=== PATIENT | female | born 1990 | race Hispanic/Latino ===

== ENCOUNTER 2017-05-04 21:21 | Emergency (ER) | payer MEDICAID ==
[2017-05-04 22:52] LABS: EOS # 0.1 K/uL (0.0-0.7); LYMPH # 2.2 K/uL (1.0-4.3); MEAN CORPUSCULAR HEMOGLOBIN 33.7 pg (27.0-31.0); MONO # 0.5 K/uL (0.0-0.8); RBC 4.26 Mil/uL (3.80-5.20); RED CELL DISTRIBUTION WIDTH 13.7 % (11.5-14.5)
[2017-05-04 22:56] LABS: BASO # 0.1 K/uL (0.0-0.2); BASO % 1.4 % (0.0-2.0); EOS % 1.8 % (0.0-4.0); HEMOGLOBIN 14.3 g/dL (11.0-16.0); LYMPH % 31.7 % (20.0-40.0); MEAN CELL VOLUME 101.8 fL (81.0-99.0); MEAN CORPUSCULAR HGB CONC 33.1 g/dL (33.0-37.0); MEAN PLATELET VOLUME 8.5 fL (7.2-11.7); MONO % 7.7 % (0.0-10.0); NEUT # 3.9 K/uL (1.8-7.0); NEUT % 57.4 % (50.0-75.0); WHITE BLOOD COUNT 6.8 K/uL (4.8-10.8)
--- NOTE | 2017-05-04 23:01 | C.PDOC ---
History Of Present Illness 26 year old female brought in by EMS for acute ETOH intoxication. Patient has a Hx of diabetes and is currently on medication for it. Denies any physical complaints. Chief Complaint (Nursing): Substance Abuse History Per: Patient, EMS History/Exam Limitations: no limitations Onset/Duration Of Symptoms: Hrs Current Symptoms Are (Timing): Still Present Suicide/Self Injury Attempted (Context): None Modifying Factor(s): Alcohol Associated Symptoms: denies: Depression, Suicidal Thoughts, Suicidal Plan Involuntary Hold By: None Recent travel outside of the [place]: No Past Medical History Reviewed: Historical Data, Nursing Documentation, Vital Signs Vital Signs: Last Vital Signs Temp 98.0 F 05/05/17 01:58 Pulse 90 05/05/17 01:58 Resp 18 05/05/17 01:58 BP 119/63 05/05/17 01:58 Pulse Ox 96 05/05/17 01:58 - Medical History PMH: Diabetes Surgical History: No Surg Hx Family History: States: Unknown Family Hx - Social History Hx Alcohol Use: Yes Hx Substance Use: No (unknown refuesed to cooperate) - Immunization History Hx Tetanus Toxoid Vaccination: No Hx Influenza Vaccination: No Hx Pneumococcal Vaccination: No Review Of Systems Constitutional: Negative for: Fever, Chills Gastrointestinal: Negative for: Nausea, Vomiting, Diarrhea Physical Exam - Physical Exam Appears: Non-toxic, No Acute Distress, Other (ETOH on breath) Skin: Normal Color, Warm, Dry Head: Atraumatic, Normacephalic Oral Mucosa: Moist Chest: Symmetrical, No Tenderness Cardiovascular: Rhythm Regular, No Murmur Respiratory: Normal Breath Sounds, No Rales, No Rhonchi, No Wheezing Gastrointestinal/Abdominal: Soft, No Tenderness Neurological/Psych: Oriented x3, Normal Speech, Normal Cognition ED Course And Treatment - Laboratory Results Result Diagrams: 05/04/17 22:48 05/04/17 22:48 O2 Sat by Pulse Oximetry: 95 (Room air) Pulse Ox Interpretation: Normal Progress Note: Blood work and urinalysis ordered. Disposition - Disposition Referrals: [facility] [Outside] Disposition: HOME/ ROUTINE Disposition Time: 01:30 Condition: STABLE Instructions: Diabetes Mellitus Type 1 in Adults (ED), Alcohol Intoxication ( GEN) - POA Present On Arrival: None - Clinical Impression Clinical Impression: Alcohol abuse - Scribe Statement The provider has reviewed the documentation as recorded by the Scribe Matt Mchugh All medical record entries made by the Mickieibelena were at my direction and personally dictated by me. I have reviewed the chart and agree that the record accurately reflects my personal performance of the history, physical exam, medical decision making, and the department course for this patient. I have also personally directed, reviewed, and agree with the discharge instructions and disposition.
[2017-05-04 23:03] LABS: ALB/GLOB RATIO 1.3 (1.0-2.1); AST/SGOT 92 U/L (14-36); GFR AFRICAN-AMERICAN > 60; GFR NON-AFRICAN AMERICAN > 60
[2017-05-04 23:04] LABS: ALT/SGPT 45 U/L (9-52); BLOOD UREA NITROGEN 8 mg/dL (7-17); CALCIUM 8.6 mg/dl (8.6-10.4)
[2017-05-04 23:05] LABS: URINE BILIRUBIN NEGATIVE (NEGATIVE); URINE BLOOD NEGATIVE (NEGATIVE); URINE CLARITY Clear (Clear); URINE COLOR Colorless (YELLOW); URINE GLUCOSE (UA) 3+ mg/dL (Normal); URINE LEUKOCYTE ESTERASE NEG Leu/uL (Negative); URINE NITRATE NEGATIVE (NEGATIVE); URINE PROTEIN NEGATIVE (NEGATIVE); URINE UROBILINOGEN NORMAL mg/dL (0.2-1.0)
[2017-05-04 23:13] LABS: HCG,QUALITATIVE URINE NEGATIVE (NEGATIVE)
[2017-05-04 23:18] LABS: BARBITURATES, UR NEGATIVE (NEGATIVE)
[2017-05-04 23:19] LABS: BENZODIAZEPINES, UR NEGATIVE (NEGATIVE)
[2017-05-04] MEDS ORDERED: (Novolin R) Insulin Human Regular 100 units/ml vial SC ONE (23:19)
[2017-05-04 23:21] LABS: OPIATES, UR NEGATIVE (NEGATIVE)
[2017-05-04 23:22] LABS: PHENCYCLIDINE, UR NEGATIVE (NEGATIVE)
[2017-05-04] MEDS ORDERED: (Novolin R) Insulin Human Regular 100 units/ml vial ONE (23:28)
[2017-05-04] MEDS ORDERED: (Novolog) Insulin Aspart, Recombinant 100 u/ml 10 ml vial SC STA (23:35)
[2017-05-04] MEDS ORDERED: Insulin Detemir 100 units/ml Vial (Levemir) SC STA (23:36)
[2017-05-04] MEDS ORDERED: (Novolog) Insulin Aspart, Recombinant 100 u/ml 10 ml vial ONE (23:43)
[2017-05-04] MEDS ORDERED: Insulin Detemir 100 units/ml Vial (Levemir) SC ONE (23:44)
[2017-05-05 00:19] VITALS: RESP 18
[2017-05-05 01:59] VITALS: BP 119/63; PULSE 90; TEMP 98
[2017-05-07 11:51] VITALS: O2SAT 95
== END 2017-05-05 01:59 | disposition home or self-care (01) ==
LOC: C.ER 21:21
DX: F10.120 Alcohol abuse with intoxication, uncomplicated (principal); Y90.8 Blood alcohol level of 240 mg/100 ml or more